=== PATIENT | female | born 1995 | race Caucasian/White ===

== ENCOUNTER 2019-05-09 00:42 | Observation (INO) ==
[2019-05-09 01:36] LABS: Basophils # 0.1 K/mcL (0.0-0.2); Basophils % 0.8 %; Eosinophils # 0.1 K/mcL (0.0-0.6); Eosinophils % 0.4 %; Hemoglobin 11.2 g/dL (11.5-15.4); Immature Granulocytes % 0.4 % (0-4); Lymphocytes # 2.9 K/mcL (0.6-4.6); Lymphocytes % 25.2 %; Mean Corpuscular HGB Conc 32.9 g/dL (31.6-35.5); Mean Corpuscular Hemoglobin 26.9 pg (28.0-33.3); Mean Corpuscular Volume 81.7 fL (83.0-100.0); Mean Platelet Volume 8.6 fL (9.4-12.4); Monocytes % 9.1 %; Neutrophils # 7.3 K/mcL (1.6-8.9); Platelet Count 398 K/mcL (140-400); Red Blood Count 4.16 M/mcL (3.82-4.97); Red Cell Distribution Width 14.5 % (11.5-14.5); Segmented Neutrophils % 64.1 %; White Blood Count 11.4 K/mcL (4.3-11.1)
[2019-05-09 01:53] LABS: Acetaminophen < 10 mcg/mL (10-20); Alanine Aminotransferase 43 Units/L (7-52); Albumin 3.7 g/dL (3.5-5.7); Albumin/Globulin Ratio 1.3 (1.1-2.2); Alkaline Phosphatase 77 Units/L (34-104); Aspartate Amino Transferase 122 Units/L (13-39); BUN/Creatinine Ratio 36 (6-26); Bilirubin,Total 0.8 mg/dL (0.3-1.0); Blood Urea Nitrogen 23 mg/dL (6-20); Calcium 9.1 mg/dL (8.6-10.3); Carbon Dioxide 22 mEq/L (23-29); Ethanol < 10 mg/dL (Less than 10); Globulin 2.9 g/dL (2.4-3.5); Glucose 102 mg/dL (70-105); Salicylate < 2.5 mg/dL (15.0-30.0); Total Protein 6.6 g/dL (6.4-8.9); eGFR For African Americans > 60 (> 60); eGFR For Non-African Americans > 60 (> 60)
[2019-05-09 01:58] LABS: Amphetamine Screen,Urine Positive ng/mL (Cutoff=1000); Barbiturate Screen,Urine Negative ng/mL (Cutoff=200); Benzodiazepines Screen,Urine Positive ng/mL (Cutoff=200); Cannabinoid Screen,Urine Negative ng/mL (Cutoff = 50); Cocaine Screen,Urine Negative ng/mL (Cutoff= 300); Opiate Screen,Urine Positive ng/mL (Cutoff=300); Phencyclidine Screen,Urine Negative ng/mL (Cutoff=25)
[2019-05-09 01:58] LABS: Chloride 100 mEq/L (98-107); Osmolality,Calculated 282 (280-300); Potassium 3.2 mEq/L (3.5-5.1); Sodium 134 mEq/L (136-145)
--- NOTE | 2019-05-09 03:01 | Emergency Department Note ---
Overdose - MDM Narrative Medical decision making narrative: Drug overdose. Evidence for multiple ingestions. She was reassessed 2 hours after the Narcan was given around 12:30 AM. Pulse ox mid 90s no respiratory distress normal respiratory rate without any labored breathing but she is for the most part still rather somnolent. She will awaken briefly but she is clearly not ready to discharge home of her own accord. She is probably coming down from amphetamine at this point. Safest to observe her in the hospital through the rest of the night until she returns to normal mental status and ability to walk. I spoke with the covering hospitalist here [place] presented the case. He accepted admission. She is transferred in stable condition. - Lab Data Lab results reviewed: Yes I reviewed the patient's lab results. Result diagrams: 05/09/19 01:30 05/09/19 01:30 Lab Results 05/09/19 05/09/19 05/09/19 Range/Units 01:15 01:15 01:30 WBC (4.3-11.1) K/mcL RBC (3.82-4.97) M/mcL Hgb (11.5-15.4) g/dL Hct (35.3-44.9) % MCV (83.0-100.0) fL MCH (28.0-33.3) pg MCHC (31.6-35.5) g/dL RDW (11.5-14.5) % Plt Count (140-400) K/mcL MPV (9.4-12.4) fL Immature Gran % (0-4) % Seg Neutrophils % % Lymphocytes % % Monocytes % % Eosinophils % % Basophils % % Neutrophils # (1.6-8.9) K/mcL Lymphocytes # (0.6-4.6) K/mcL Monocytes # (0.0-1.3) K/mcL Eosinophils # (0.0-0.6) K/mcL Basophils # (0.0-0.2) K/mcL Sodium (136-145) mEq/L Potassium (3.5-5.1) mEq/L Chloride (98-107) mEq/L Carbon Dioxide (23-29) mEq/L BUN (6-20) mg/dL Creatinine (0.60-1.20) mg/dL Est GFR ( Amer) (> 60) Est GFR (Non-Af Amer) (> 60) BUN/Creatinine Ratio (6-26) Glucose (70-105) mg/dL Calculated Osmolality (280-300) Calcium (8.6-10.3) mg/dL Total Bilirubin (0.3-1.0) mg/dL AST (13-39) Units/L ALT (7-52) Units/L Alkaline Phosphatase (34-104) Units/L Serum Total Protein (6.4-8.9) g/dL Albumin (3.5-5.7) g/dL Globulin (2.4-3.5) g/dL Albumin/Globulin Ratio (1.1-2.2) Urine Test Negative (Negative) Salicylates < 2.5 L (15.0-30.0) mg/dL Urine Opiates Screen Positive H (Xwwrdz=341) ng/mL Acetaminophen < 10 L (10-20) mcg/mL Ur Barbiturates Screen Negative (Rvolbp=975) ng/mL Ur Phencyclidine Scrn Negative (Cutoff=25) ng/mL Ur Amphetamines Screen Positive H (Jrucfk=6558) ng/mL U Benzodiazepines Scrn Positive H (Qsnjqf=271) ng/mL Urine Cocaine Screen Negative (Cutoff= 300) ng/mL U Marijuana (THC) Screen Negative (Cutoff = 50) ng/mL Ur Drug Screen Interp See Below Ethyl Alcohol < 10 (Less than 10) mg/dL 05/09/19 05/09/19 Range/Units 01:30 01:30 WBC 11.4 H (4.3-11.1) K/mcL RBC 4.16 (3.82-4.97) M/mcL Hgb 11.2 L (11.5-15.4) g/dL Hct 34.0 L (35.3-44.9) % MCV 81.7 L (83.0-100.0) fL MCH 26.9 L (28.0-33.3) pg MCHC 32.9 (31.6-35.5) g/dL RDW 14.5 (11.5-14.5) % Plt Count 398 (140-400) K/mcL MPV 8.6 L (9.4-12.4) fL Immature Gran % 0.4 (0-4) % Seg Neutrophils % 64.1 % Lymphocytes % 25.2 % Monocytes % 9.1 % Eosinophils % 0.4 % Basophils % 0.8 % Neutrophils # 7.3 (1.6-8.9) K/mcL Lymphocytes # 2.9 (0.6-4.6) K/mcL Monocytes # 1.0 (0.0-1.3) K/mcL Eosinophils # 0.1 (0.0-0.6) K/mcL Basophils # 0.1 (0.0-0.2) K/mcL Sodium 134 L (136-145) mEq/L Potassium 3.2 L (3.5-5.1) mEq/L Chloride 100 (98-107) mEq/L Carbon Dioxide 22 L (23-29) mEq/L BUN 23 H (6-20) mg/dL Creatinine 0.64 (0.60-1.20) mg/dL Est GFR ( Amer) > 60 (> 60) Est GFR (Non-Af Amer) > 60 (> 60) BUN/Creatinine Ratio 36 H (6-26) Glucose 102 (70-105) mg/dL Calculated Osmolality 282 (280-300) Calcium 9.1 (8.6-10.3) mg/dL Total Bilirubin 0.8 (0.3-1.0) mg/dL AST 122 H (13-39) Units/L ALT 43 (7-52) Units/L Alkaline Phosphatase 77 (34-104) Units/L Serum Total Protein 6.6 (6.4-8.9) g/dL Albumin 3.7 (3.5-5.7) g/dL Globulin 2.9 (2.4-3.5) g/dL Albumin/Globulin Ratio 1.3 (1.1-2.2) Urine Test (Negative) Salicylates (15.0-30.0) mg/dL Urine Opiates Screen (Cluedv=658) ng/mL Acetaminophen (10-20) mcg/mL Ur Barbiturates Screen (Gtfxhv=300) ng/mL Ur Phencyclidine Scrn (Cutoff=25) ng/mL Ur Amphetamines Screen (Bccjpz=7401) ng/mL U Benzodiazepines Scrn (Tbcgmo=322) ng/mL Urine Cocaine Screen (Cutoff= 300) ng/mL U Marijuana (THC) Screen (Cutoff = 50) ng/mL Ur Drug Screen Interp Ethyl Alcohol (Less than 10) mg/dL Overdose HPI - General Chief Complaint: ED Overdose Stated Complaint: Overdose Time Seen by Provider: 05/09/19 01:20 Source: family, EMS Limitations: altered mental status Nursing Notes Reviewed: Yes Vital Signs Reviewed: Yes - History of Present Illness HPI Narrative: EMS brought Ms. Magallon to the emergency department after giving her 2 mg of Narcan which seems to have made her more alert. 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 Absent: respiratory distress, wheezes, stridor - Cardiovascular Cardiovascular exam: Present: regular rate, normal rhythm, normal heart sounds. Absent: systolic murmur, diastolic murmur - Abdominal Exam Abdominal exam: Present: soft, Non-Tender - Extremities Exam Extremities exam: Present: normal inspection. Absent: pedal edema - Neurological Exam Neurological exam: Present: other (Lethargic but occasionally will awaken to have incomprehensible outbursts) - Psychiatric Psychiatric exam: Present: agitated, anxious - Skin Skin exam: Present: warm, dry Course Vital Signs Temperature 99.2 F 05/09/19 01:10 Pulse Rate 96 05/09/19 01:10 Respiratory Rate 16 05/09/19 01:10 Blood Pressure 111/61 05/09/19 01:10 O2 Sat by Pulse Oximetry 97 05/09/19 01:10 Temperature 99.2 F 05/09/19 01:10 Pulse Rate 104 05/09/19 02:11 Respiratory Rate 14 05/09/19 02:11 Blood Pressure 103/55 05/09/19 02:11 O2 Sat by Pulse Oximetry 96 05/09/19 02:11 Oxygen Delivery Oxygen Delivery Room Air Disposition Clinical Impression: Drug overdose Disposition: Admitted As Inpatient Condition: Fair Instructions: Adult Overdose (ED) Referrals: NONE,PCP [Primary Care Provider] - Forms: ED Satisfaction Letter Time of Disposition: 03:00
[2019-05-09] MEDS ORDERED: Ondansetron 4 MG/2 ML VIAL IVP PRN (04:10)
[2019-05-09] MEDS ORDERED: Naloxone 0.4 MG/ML INJ IVP PRN (04:10)
[2019-05-09] MEDS: *HR* LORazepam 2 MG/ML VIAL IVP PRN (05:16)
--- NOTE | 2019-05-09 09:54 | Internal Med History&Physical ---
Date of Encounter: 05/09/19 Time of Encounter: 09:50 Assessment and Plan (1) Drug overdose Current visit: Yes Status: Acute Y female with overdose of multisubstances opiates, meth and benzo noted in her screen . I am unable to tell if this was intentional or as she has been using drugs for some time She has gone for rehab few times. Since she is still sleepy will follow . Continue to provide supportive treatment . Will attempt to get social services specialist involved and get family as well to come up with a discharge planning . Supportive treatment at the present time. Qualifiers: Encounter type: initial encounter Injury intent: accidental or unintentional Qualified Code(s): T50.901A - Poisoning by unspecified drugs, medicaments and biological substances, accidental (unintentional), initial encounter (2) Hypokalemia Current visit: Yes Status: Acute oral supplement and followup Internal Medicine - H&P: HPI Admitted From: Emergency Dept History of present illness: Ms. Magallon is a 23 year old female who was admitted from ER where she was brought by family due to overdose. There is no good history available at the present time . She was unconscious when brought to ED , received Narcan but was still sleepy and admitted for further observation . Today this morning she is arousal, opens her eyes but goes back tot sleep again and then moves into jerky movement. She doesn't seems to be in any acute distress. She does follows simple commands when given she is moving her all limbs . Past Med Surg Social Fam HX - Past Medical History Medical history: asthma, hepatitis Psychiatric history: anxiety - Past Surgical History Surgical History: no surgical history - Social History Smoking Status: Former smoker Smokeless Tobacco Status: No Alcohol use: none Drug use: opiates, marijuana, methamphetamine, IV Drug Use Internal Medicine - H&P: Meds No Known Home Drugs 11/02/18 [History] Allergy/AdvReac Type Severity Reaction Status Date / Time No Known Allergies Allergy Unverified 05/09/19 01:10 All Systems PM: A 10-system review of systems was performed and is negative for pertinent findings except as documented above in the HPI. - Constitutional Constitutional: no chills Additional comments: unable to get history and she doesn't responds to my questions she does seem to understand ans she got up and asked for water and then went to sleep again - EENT Eyes: no dry eye, no itchy eyes - Breasts Additional comments: none . - Respiratory Additional comments: no acute distress - Constitutional Vitals: Temp Pulse Resp BP Pulse Ox 97.8 F 110 20 115/70 98 05/09/19 05:08 05/09/19 05:08 05/09/19 05:08 05/09/19 05:08 05/09/19 05:22 General appearance: Present: disheveled, no acute distress Exam: she responds to simple commands opens her eyes but doesn't answer questions . She did getup and asked for water drank some sips and then went back to sleep - Head Head exam: Present: atraumatic - Eye Eye exam: Present: EOMI, PERRL. Absent: scleral icterus - Neck Neck exam general surgery: Present: full ROM, supple. Absent: tenderness, nuchal rigidity, thyromegaly - Respiratory Respiratory exam: Present: CTAB. Absent: chest wall tenderness, decreased breath sounds, prolonged expiratory phase, rales, respiratory distress, rhonchi, stridor, wheezes, tachypnea - Cardiovascular Cardiovascular exam: Present: RRR, +S1, +S2. Absent: irregular rhythm, JVD, rubs, systolic murmur, tachycardia - GI/Abdominal GI/Abdominal exam: Present: normal bowel sounds, soft. Absent: distended, firm, guarding, hypoactive bowel sounds, rebound, rigid, tenderness, no peritoneal signs - Extremities Exam Extremities exam: Present: normal inspection. Absent: calf tenderness, mottling, pedal edema - Back Exam Back exam: Present: normal inspection. Absent: rash noted, tenderness, vertebral tenderness - Neurological Exam Additional comments: she is sleepy able to getup and then goes back to sleep she is able to move all her limbs however not following any commands Internal Med - H&P Results - Labs CBC & Chem 7: 05/09/19 01:30 05/09/19 01:30 Labs: Short CBC 05/09/19 Range/Units 01:30 WBC 11.4 H (4.3-11.1) K/mcL Hgb 11.2 L (11.5-15.4) g/dL Hct 34.0 L (35.3-44.9) % Plt Count 398 (140-400) K/mcL Neutrophils # 7.3 (1.6-8.9) K/mcL BMP 05/09/19 01:30 Sodium 134 L Potassium 3.2 L Chloride 100 Carbon Dioxide 22 L BUN 23 H Creatinine 0.64 Glucose 102 Calcium 9.1 Liver Function 05/09/19 Range/Units 01:30 Total Bilirubin 0.8 (0.3-1.0) mg/dL AST 122 H (13-39) Units/L ALT 43 (7-52) Units/L Alkaline Phosphatase 77 (34-104) Units/L Albumin 3.7 (3.5-5.7) g/dL - VTE Reasons for not Prescribing Prophylaxis: Treatment not Indicated - Low risk for VTE
[2019-05-09 10:35] VITALS: BP 138/69
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
== END 2019-05-09 12:55 | disposition home or self-care (01) ==
LOC: INPGRE 00:42 → EMEROOGRE 00:42 → INPGRE 04:30
PROVIDERS: ADMIT Internal Medicine; ATTEND Internal Medicine

== ENCOUNTER 2019-05-20 03:49 | Observation (INO) ==
[2019-05-20] MEDS ORDERED: 0.9 % Sodium Chloride 500 ML IVC ONE (03:56)
[2019-05-20] MEDS ORDERED: Ipratropium/Albuterol Neb 3 ML IH ONE (03:56)
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
[2019-05-20 04:29] LABS: Basophils % 0.4 %; Eosinophils # 0.1 K/mcL (0.0-0.6); Eosinophils % 1.3 %; Hematocrit 33.6 % (35.3-44.9); Hemoglobin 10.6 g/dL (11.5-15.4); Immature Granulocytes % 0.4 % (0-4); Lymphocytes # 1.7 K/mcL (0.6-4.6); Lymphocytes % 31.7 %; Mean Corpuscular HGB Conc 31.5 g/dL (31.6-35.5); Mean Corpuscular Hemoglobin 26.8 pg (28.0-33.3); Mean Corpuscular Volume 85.1 fL (83.0-100.0); Mean Platelet Volume 10.5 fL (9.4-12.4); Monocytes # 0.4 K/mcL (0.0-1.3); Monocytes % 6.9 %; Neutrophils # 3.3 K/mcL (1.6-8.9); Platelet Count 252 K/mcL (140-400); Red Blood Count 3.95 M/mcL (3.82-4.97); Red Cell Distribution Width 15.2 % (11.5-14.5); Segmented Neutrophils % 59.3 %; White Blood Count 5.5 K/mcL (4.3-11.1)
[2019-05-20 04:40] LABS: Acetaminophen < 10 mcg/mL (10-20); Alanine Aminotransferase 46 Units/L (7-52); Albumin 3.6 g/dL (3.5-5.7); Albumin/Globulin Ratio 1.3 (1.1-2.2); Alkaline Phosphatase 76 Units/L (34-104); Aspartate Amino Transferase 46 Units/L (13-39); BUN/Creatinine Ratio 11 (6-26); Bilirubin,Total 0.5 mg/dL (0.3-1.0); Blood Urea Nitrogen 13 mg/dL (6-20); Calcium 8.7 mg/dL (8.6-10.3); Carbon Dioxide 25 mEq/L (23-29); Chloride 103 mEq/L (98-107); Ethanol < 10 mg/dL (Less than 10); Globulin 2.7 g/dL (2.4-3.5); Glucose 111 mg/dL (70-105); Magnesium 1.4 mg/dL (1.6-2.6); Osmolality,Calculated 289 (280-300); Potassium 3.2 mEq/L (3.5-5.1); Salicylate < 2.5 mg/dL (15.0-30.0); Sodium 139 mEq/L (136-145); Total Protein 6.3 g/dL (6.4-8.9); eGFR For African Americans > 60 (> 60); eGFR For Non-African Americans 57 (> 60)
[2019-05-20 04:41] LABS: Amphetamine Screen,Urine Positive ng/mL (Cutoff=1000); Barbiturate Screen,Urine Negative ng/mL (Cutoff=200); Benzodiazepines Screen,Urine Negative ng/mL (Cutoff=200); Cannabinoid Screen,Urine Negative ng/mL (Cutoff = 50); Cocaine Screen,Urine Negative ng/mL (Cutoff= 300); Opiate Screen,Urine Positive ng/mL (Cutoff=300); Phencyclidine Screen,Urine Positive ng/mL (Cutoff=25)
[2019-05-20] MEDS ORDERED: 0.9 % Sodium Chloride 1,000 ML IVC SCH ×2 (05:00→05:13)
[2019-05-20] MEDS ORDERED: Ondansetron 4 MG/2 ML VIAL IVP PRN ×2 (05:01→05:13)
[2019-05-20] MEDS ORDERED: Naloxone 0.4 MG/ML INJ IVP PRN ×3 (05:01→05:13)
[2019-05-20] MEDS ORDERED: Ondansetron 4 MG/2 ML VIAL IVP ONE ×2 (05:10→05:13)
[2019-05-20] MEDS ORDERED: Magnesium Sulfate 1 GM in D5% in Water 100 ML IVPB ONE (08:25)
[2019-05-20 08:31] VITALS: BP 98/50
--- NOTE | 2019-05-20 10:21 | Internal Med History&Physical ---
Date of Encounter: 05/20/19 Time of Encounter: 10:18 Assessment and Plan (1) Drug overdose Current visit: Yes Status: Acute Patient was admitted to the medical floor overnight after presented to emergency department as an overdose. Patient is fully awake this morning and denies any current issues, to include discomforts or dyspnea. Patient currently appears very restless and anxious. Patient acknowledges that she has a daily user of heroin and that she usually becomes symptomatic for her next dosing in 6-8 hours. Social service has been console with recommendations of referrals presented to patient, who currently is refusing further treatment. We will prepare patient for possible discharge later this afternoon. Qualifiers: Encounter type: initial encounter Injury intent: accidental or unintentional Qualified Code(s): T50.901A - Poisoning by unspecified drugs, medicaments and biological substances, accidental (unintentional), initial encounter (2) Asthma Current visit: Yes Status: Chronic No acute issues. Patient states a history of asthma with occasional use of inhalers. Currently lungs are clear and patient denies any dyspnea. We will continue with current plan of care and monitor. Qualifiers: Asthma severity: unspecified severity Asthma persistence: unspecified Asthma complication type: unspecified Qualified Code(s): J45.909 - Unspecified asthma, uncomplicated (3) Hypokalemia Current visit: Yes Status: Acute Patient's potassium on presentation was 3.2. Patient has received potassium supplements. We will recheck patient's labs this morning for any needs of further treatment prior to being discharged to home. Internal Medicine - H&P: HPI Chief complaint: overdose Admitted From: Emergency Dept Plans for Post Hospital Care: Home History of present illness: Ms. Magallon is a 23 year old female, who is admitted to the emergency department last evening after being found at home unresponsive. Agents that her recent admission at this facility for an overdose on 05/09/19. Patient states that she does not remember what happened to her and that she was at her grandmother's house last evening. Patient acknowledges that she was using heroin yesterday and states that she is a daily user sometimes multiple times daily. Patient acknowledges that she has had it multiple overdoses over the past 6 months with increasing frequency. Patient states that she has been through an ounce rehabilitation before and currently is seen at a Sub[facility] clinic, which she had an appointment this morning to be seen. Patient currently states that she feels better but has been feeling very anxious this morning. Denies any current discomforts or shortness of breath. Denies any nausea. Patient was seen by social group worker with since presented and patient currently denies any need for referrals Past Med Surg Social Fam HX - Past Medical History Medical history: asthma, hepatitis Psychiatric history: anxiety - Past Surgical History Surgical History: no surgical history - Social History Smoking Status: Former smoker Smokeless Tobacco Status: No Alcohol use: none Drug use: opiates, marijuana, methamphetamine, IV Drug Use Internal Medicine - H&P: Meds No Known Home Drugs 11/02/18 [History] Allergy/AdvReac Type Severity Reaction Status Date / Time No Known Allergies Allergy Verified 05/20/19 04:45 All Systems PM: A 10-system review of systems was performed and is negative for pertinent findings except as documented above in the HPI. - Constitutional Constitutional: as per HPI, no chills, no fever(s), no night sweats - EENT Eyes: as per HPI, no change in vision, no discharge, no pain, no photophobia Ears: as per HPI, no ear discharge, no ear pain, no tinnitus Nose, mouth and throat: as per HPI, no dysphagia, no nasal discharge, no neck pain, no sore throat - Breasts Breasts: as per HPI - Cardiovascular Cardiovascular ROS IM: as per HPI, no chest pain, no diaphoresis, no dyspnea, no lightheadedness, no palpitations, no syncope - Respiratory Respiratory: as per HPI, no cough, no dyspnea, no wheezing, no excessive phlegm production - Gastrointestinal Gastrointestinal: as per HPI, no abdominal pain, no diarrhea, no hematemesis, no hematochezia, no melena, no nausea, no vomiting - Genitourinary Genitourinary: as per HPI, no change in urinary stream, no dysuria, no flank pain, no hematuria - Musculoskeletal Musculoskeletal ROS IM: as per HPI, no numbness, no tingling - Integumentary Integumentary IM: as per HPI, no rash, no unusual bruising - Neurological Neurological ROS: as per HPI, no confusion, no convulsions, no focal weakness, no numbness, no tingling, no tremor(s) - Psychiatric Psychiatric: as per HPI, anxiety - Hematologic/Lymphatic Hematologic/Lymphatic: no easy bruising - Constitutional Vitals: Temp Pulse Resp BP Pulse Ox 98.5 F 95 15 98/50 96 05/20/19 08:29 05/20/19 08:29 05/20/19 08:29 05/20/19 08:29 05/20/19 08:29 General appearance: Present: A&O X 3, pleasant Exam: Patient is cooperative but very restless - Head Head exam: Present: atraumatic, normocephalic - Eye Eye exam: Present: PERRL, conjuntiva pink, sclera anicteric Pupils: Present: PERRL - Neck Neck exam general surgery: Present: supple, trachea midline. Absent: lymphadenopathy - Respiratory Respiratory exam: Present: CTAB. Absent: accessory muscle use, rales, rhonchi, wheezes - Cardiovascular Cardiovascular exam: Present: RRR, +S1, +S2. Absent: diastolic murmur, gallop, rubs, systolic murmur - GI/Abdominal GI/Abdominal exam: Present: normal bowel sounds, soft, no peritoneal signs. Absent: distended, tenderness - Extremities Exam Extremities exam: Present: warm, radial pulses palpable and symmetrical. Absent: calf tenderness, cyanotic, pedal edema - Neurological Exam Neurological exam: Present: CN II-XII intact, oriented X3, no focal deficits. Absent: pronater drift, facial droop, speech deficit - Skin Skin exam: Present: dry, intact Internal Med - H&P Results - Labs CBC & Chem 7: 05/20/19 04:15 05/20/19 04:15 Labs: Short CBC 05/20/19 Range/Units 04:15 WBC 5.5 (4.3-11.1) K/mcL Hgb 10.6 L (11.5-15.4) g/dL Hct 33.6 L (35.3-44.9) % Plt Count 252 (140-400) K/mcL Neutrophils # 3.3 (1.6-8.9) K/mcL BMP 05/20/19 04:15 Sodium 139 Potassium 3.2 L Chloride 103 Carbon Dioxide 25 BUN 13 Creatinine 1.18 Glucose 111 H Calcium 8.7 Liver Function 05/20/19 Range/Units 04:15 Total Bilirubin 0.5 (0.3-1.0) mg/dL AST 46 H (13-39) Units/L ALT 46 (7-52) Units/L Alkaline Phosphatase 76 (34-104) Units/L Albumin 3.6 (3.5-5.7) g/dL - VTE Reasons for not Prescribing Prophylaxis: Treatment not Indicated - Low risk for VTE
--- NOTE | 2019-05-20 11:47 | Discharge Summary ---
Orders not resulted at time of discharge: Pending orders 05/20/19 04:15 Culture,Blood [BC] Stat 05/20/19 10:39 BMP [Basic Metabolic Panel] Routine Date of Encounter: 05/20/19 Time of Encounter: 11:45 - Discharge Diagnosis (1) Drug overdose Priority: Primary Status: Acute Comments: Patient presented to emergency department after being found at home with decreased LOC. Patient acknowledged that she was using heroin yesterday afternoon and does not remember the events after that. Patient with recent admission on 05/09/19 for an overdose. Patient is awake this morning and denies any current issues. Vital signs are stable. Patient appears very restless and states that she is a daily user and usually can last 68 hours between dosing. Patient has been seen by social insurance administrator with referrals provided and currently refuses further follow-up Qualifiers: Encounter type: initial encounter Injury intent: accidental or unintentional Qualified Code(s): T50.901A - Poisoning by unspecified drugs, medicaments and biological substances, accidental (unintentional), initial encounter (2) Asthma Priority: Secondary Status: Chronic Comments: No acute issues during her stay of facility. Patient with history of asthma and uses a rescue inhaler of albuterol at home on occasion. Denies any dyspnea. No productive cough. Patient recommended to follow-up with PCP, Dr. Priest for further management Qualifiers: Asthma severity: unspecified severity Asthma persistence: unspecified Asthma complication type: unspecified Qualified Code(s): J45.909 - Unspecified asthma, uncomplicated (3) Hypokalemia Priority: Secondary Status: Acute Hospital course: Ms. Magallon is a 23 year old female, who presented to the emergency department after being found at home with decreased LOC. Patient had acknowledged use of heroin yesterday and does not remember the events afterwards. Patient had a recent admission for an overdose on 05/09/19 and states that she has had several overdoses over the past 6 months. This morning patient appears alert but restless. Denies any discomforts or shortness of breath. Patient's potassium on admission was 3.2 and she received replacement. Follow-up potassium was 4.4, requiring no further treatment. Patient with a history of asthma with occasional use of a rescue inhaler at home. Currently no issues during her stay at this facility with her lungs remain clear and no dyspnea noted. Patient was seen by social insurance administrator with referrals provided for rehabilitation and patient currently states that she does not wish to pursue any further outpatient services Patient is recommended to follow up with her PCP, Dr. Priest for further management. Discharge discussed with: patient Time spent discussing smoking cessation with patient: 3 to 10 minutes - Time Spent with Patient Total time spent providing and/or coordinating discharge services: Time spent: Less than 30 minutes - Discharge Medications Prescriptions: No Action No Known Home Drugs 1 each .ROUTE AD each Home Medications: No Known Home Drugs 11/02/18 [History] Allergies/Adverse Reactions: Allergy/AdvReac Type Severity Reaction Status Date / Time No Known Allergies Allergy Verified 05/20/19 04:45 Date of admission: 05/20/19 05:13 Primary care physician: PCP NONE Consults: 05/20/19 05:04 Consult to Immigration Inspector [CONS] Routine Reason for SW Consult: Second admission for drug overdose in 11 days. Discharging clinician: Carlos Lange - Constitutional Vitals: Temp Pulse Resp BP Pulse Ox 98.5 F 95 15 98/50 96 05/20/19 08:29 05/20/19 08:29 05/20/19 08:29 05/20/19 08:29 05/20/19 08:29 General appearance: Present: A&O X 3, pleasant Exam: Restless - Head Head exam: Present: atraumatic, normocephalic - Eye Eye exam: Present: PERRL, conjuntiva pink, sclera anicteric Pupils: Present: PERRL - Neck Neck exam general surgery: Present: supple, trachea midline. Absent: lymphadenopathy - Respiratory Respiratory exam: Present: CTAB. Absent: accessory muscle use, rales, rhonchi, wheezes - Cardiovascular Cardiovascular exam: Present: RRR, +S1, +S2. Absent: diastolic murmur, gallop, rubs, systolic murmur - GI/Abdominal GI/Abdominal exam: Present: normal bowel sounds, soft, no peritoneal signs. Absent: distended, tenderness - Extremities Exam Extremities exam: Present: warm, radial pulses palpable and symmetrical. Absent: calf tenderness, cyanotic, pedal edema - Neurological Exam Neurological exam: Present: CN II-XII intact, oriented X3, no focal deficits. Absent: pronater drift, facial droop, speech deficit - Skin Skin exam: Present: dry, intact - Patient Status Disposition: Home, Self-Care Condition: Fair Functional capacity at discharge: independent ambulation Overall status at discharge: patient is progressing back to baseline - Discharge Instructions Follow Up With: Joan Pitts MD [Primary Care Provider] - 05/25/19 10:30 am NONE,PCP [Non-Partnered Physician] - - Diet and Activity Activity: increase activity as tolerated Diet: advance to your usual diet - VTE Reasons for not Prescribing Prophylaxis: Treatment not Indicated - Low risk for VTE
[2019-05-20 12:32] LABS: BUN/Creatinine Ratio 14 (6-26); Blood Urea Nitrogen 11 mg/dL (6-20); Calcium 8.8 mg/dL (8.6-10.3); Carbon Dioxide 30 mEq/L (23-29); Chloride 103 mEq/L (98-107); Glucose 98 mg/dL (70-105); Osmolality,Calculated 283 (280-300); Potassium 4.4 mEq/L (3.5-5.1); Sodium 137 mEq/L (136-145); eGFR For African Americans > 60 (> 60); eGFR For Non-African Americans > 60 (> 60)
== END 2019-05-20 13:19 | disposition home or self-care (01) ==
LOC: INPGRE 03:49 → EMEROOGRE 03:49 → INPGRE 05:29